=== PATIENT | female | born 1935 | race Caucasian/White ===

== ENCOUNTER → 2021-04-06 | Outpatient (CLI) | payer OTHER ==
[~2021-04-06] MED LIST: ALBU.083IS IH; ALBU90OI INH; CALCAVITD PO; CALCIUM; CONEST.3 PO; FLUSAL2505 IH; LATANOPROST; LEVFLO500 PO; MULTIVITS; OMEP20ER PO; Prednisone20 MG PO; TIMOLOL; TRAV.004OP OD; TRAZ50 PO
[2021-04-06 11:26] LABS: BASOPHILS ABSOLUTE AUTO 0.07 K/mm3 (0.00-0.23); BASOPHILS PERCENT AUTO 1 % (0-2); EOSINOPHILS ABSOLUTE AUTO 0.84 K/mm3 (0.00-0.68); EOSINOPHILS PERCENT AUTO 14 % (0-6); Hematocrit 39.8 % (33.0-51.0); Hemoglobin 13.5 g/dL (11.5-16.0); IMMATURE GRAN ABSOLUTE AUTO 0.01 K/mm3 (0.00-0.10); IMMATURE GRAN PERCENT AUTO 0 % (0-1); LYMPHOCYTES ABSOLUTE AUTO 2.23 K/mm3 (0.84-5.20); LYMPHOCYTES PERCENT AUTO 37 % (21-46); MONOCYTES ABSOLUTE AUTO 0.38 K/mm3 (0.16-1.47); MONOCYTES PERCENT AUTO 6 % (4-13); Mean Corpuscular HGB 31.5 pg (26.0-34.0); Mean Corpuscular HGB Conc 33.9 g/dL (31.5-36.5); Mean Corpuscular Volume 93 fL (80-100); Mean Platelet Volume 9.5 fL (9.1-12.4); NEUTROPHILS ABSOLUTE AUTO 2.58 K/mm3 (1.96-9.15); NEUTROPHILS PERCENT AUTO 42 % (41-73); Platelet Count 276 K/mm3 (150-400); RDW Coefficient Variation 13.5 % (11.7-14.2); RDW Standard Deviation 46.2 fL (35.1-46.3); Red Blood Cell Count 4.28 M/mm3 (3.80-5.20); White Blood Cell Count 6.11 K/mm3 (4.00-11.30)
[2021-04-06 11:37] LABS: Alanine Aminotransfer (ALT/SGP 19 U/L (12-78); Albumin, Blood 4.2 g/dL (3.4-5.0); Albumin/Globulin Ratio 1.4 (0.8-1.8); Alk Phos 57 U/L (40-126); Anion Gap 9 mmol/L (6-16); Aspartate Aminotrans (AST/SGOT 22 U/L (12-37); Bilirubin, Total 1.1 mg/dL (0.1-1.0); Blood Urea Nitrogen 15 mg/dL (8-24); Bun/Creatinine Ratio 19.5 (12.0-20.0); CHOL/HDL RATIO 2.9; CO2, Blood 26 mmol/L (21-32); Calcium, Blood 9.7 mg/dL (8.5-10.1); Chloride, Blood 105 mmol/L (98-108); Cholesterol 193 mg/dL (50-200); Creatinine, Blood 0.77 mg/dL (0.40-1.00); Globulin, Blood 3.1 g/dL (2.2-4.0); Glomerular Filtration Rate >60 (60-); Glucose, Blood 102 mg/dL (70-99); HDL Cholesterol 67 mg/dL (>39); LDL/HDL RATIO 1.6; Low Density Lipoprotein Chol 106 mg/dL (<110); Sodium, Blood 140 mmol/L (136-145); Total Protein, Blood 7.3 g/dL (6.4-8.2); Triglycerides 99 mg/dL (30-160); Very Low Density Lipoprot Chol 19 mg/dL (6-32)
== END | disposition home or self-care (01) ==
LOC: LAB 10:54 → LAB SHORT 10:54
PROVIDERS: Family Medicine
DX: E78.5 Hyperlipidemia, unspecified (principal)
CPT/HCPCS: 80053; 80061; 85025

== ENCOUNTER → 2022-01-20 | Outpatient (CLI) | payer OTHER ==
[2022-01-20 12:15] LABS: BASOPHILS ABSOLUTE AUTO 0.08 K/mm3 (0.00-0.23); BASOPHILS PERCENT AUTO 1 % (0-2); EOSINOPHILS ABSOLUTE AUTO 0.19 K/mm3 (0.00-0.68); EOSINOPHILS PERCENT AUTO 2 % (0-6); Hematocrit 38.2 % (33.0-51.0); Hemoglobin 12.8 g/dL (11.5-16.0); IMMATURE GRAN ABSOLUTE AUTO 0.02 K/mm3 (0.00-0.10); IMMATURE GRAN PERCENT AUTO 0 % (0-1); LYMPHOCYTES ABSOLUTE AUTO 3.44 K/mm3 (0.84-5.20); LYMPHOCYTES PERCENT AUTO 43 % (21-46); MONOCYTES ABSOLUTE AUTO 0.61 K/mm3 (0.16-1.47); MONOCYTES PERCENT AUTO 8 % (4-13); Mean Corpuscular HGB Conc 33.5 g/dL (31.5-36.5); Mean Corpuscular Volume 96 fL (80-100); Mean Platelet Volume 8.9 fL (9.1-12.4); NEUTROPHILS PERCENT AUTO 45 % (41-73); Platelet Count 264 K/mm3 (150-400); RDW Coefficient Variation 13.5 % (11.7-14.2); RDW Standard Deviation 47.8 fL (35.1-46.3); White Blood Cell Count 7.94 K/mm3 (4.00-11.30)
[2022-01-20 12:25] LABS: Albumin, Blood 3.5 g/dL (3.4-5.0); Albumin/Globulin Ratio 1.2 (0.8-1.8); Bilirubin, Total 0.5 mg/dL (0.1-1.0); Bun/Creatinine Ratio 12.9 (12.0-20.0); Calcium, Blood 8.5 mg/dL (8.5-10.1); Creatinine, Blood 0.7 mg/dL (0.40-1.00); Globulin, Blood 2.9 g/dL (2.2-4.0); Potassium, Blood 3.4 mmol/L (3.5-5.5); Total Protein, Blood 6.4 g/dL (6.4-8.2)
== END | disposition home or self-care (01) ==
LOC: LAB 12:10 → LAB SHORT 12:10
PROVIDERS: General Practice
DX: T63.444A Toxic effect of venom of bees, undetermined, initial encounter (principal)
CPT/HCPCS: 80053; 85025

== ENCOUNTER → 2022-07-18 | Outpatient (CLI) | payer OTHER ==
[2022-07-18 16:30] LABS: BASOPHILS ABSOLUTE AUTO 0.06 K/mm3 (0.00-0.23); BASOPHILS PERCENT AUTO 1 % (0-2); EOSINOPHILS ABSOLUTE AUTO 0.07 K/mm3 (0.00-0.68); EOSINOPHILS PERCENT AUTO 1 % (0-6); Hematocrit 40.8 % (33.0-51.0); Hemoglobin 13.6 g/dL (11.5-16.0); IMMATURE GRAN ABSOLUTE AUTO 0.03 K/mm3 (0.00-0.10); IMMATURE GRAN PERCENT AUTO 0 % (0-1); LYMPHOCYTES ABSOLUTE AUTO 4.18 K/mm3 (0.84-5.20); LYMPHOCYTES PERCENT AUTO 39 % (21-46); MONOCYTES ABSOLUTE AUTO 0.79 K/mm3 (0.16-1.47); MONOCYTES PERCENT AUTO 7 % (4-13); Mean Corpuscular HGB 32.1 pg (26.0-34.0); Mean Corpuscular HGB Conc 33.3 g/dL (31.5-36.5); Mean Corpuscular Volume 96 fL (80-100); Mean Platelet Volume 9.4 fL (9.1-12.4); NEUTROPHILS ABSOLUTE AUTO 5.71 K/mm3 (1.96-9.15); NEUTROPHILS PERCENT AUTO 53 % (41-73); Platelet Count 251 K/mm3 (150-400); RDW Coefficient Variation 13.2 % (11.7-14.2); RDW Standard Deviation 46.6 fL (35.1-46.3); Red Blood Cell Count 4.24 M/mm3 (3.80-5.20); White Blood Cell Count 10.84 K/mm3 (4.00-11.30)
[2022-07-18 16:47] LABS: Albumin, Blood 3.9 g/dL (3.4-5.0); Albumin/Globulin Ratio 1.3 (0.8-1.8); Bun/Creatinine Ratio 28.4 (12.0-20.0); Calcium, Blood 9.5 mg/dL (8.5-10.1); Creatinine, Blood 0.67 mg/dL (0.40-1.00); Potassium, Blood 3.4 mmol/L (3.5-5.5); Total Protein, Blood 6.9 g/dL (6.4-8.2)
[2022-07-18 16:58] LABS: Cholesterol 173 mg/dL (50-200); HDL Cholesterol 86 mg/dL (>39); LDL/HDL RATIO 0.8; Low Density Lipoprotein Chol 68 mg/dL (<110); Triglycerides 94 mg/dL (30-160); Very Low Density Lipoprot Chol 18 mg/dL (6-32)
== END | disposition home or self-care (01) ==
LOC: LAB 16:18 → LAB SHORT 16:18
PROVIDERS: Physician Assistant
DX: R07.9 Chest pain, unspecified (principal); R73.01 Impaired fasting glucose
CPT/HCPCS: 80053; 80061; 83036; 85025

== ENCOUNTER → 2022-10-15 | Outpatient (CLI) | payer OTHER | END | disposition home or self-care (01) | LOC: LAB SHORT 15:45 → LAB 15:45 | DX: R30.0 Dysuria (principal) | CPT/HCPCS: 87077; 87086; 87186 ==

== ENCOUNTER → 2022-11-18 | Outpatient (CLI) | payer OTHER ==
[2022-11-18 13:04] LABS: BASOPHILS ABSOLUTE AUTO 0.03 K/mm3 (0.00-0.23); BASOPHILS PERCENT AUTO 0 % (0-2); EOSINOPHILS PERCENT AUTO 2 % (0-6); Hematocrit 37.6 % (33.0-51.0); Hemoglobin 12.7 g/dL (11.5-16.0); IMMATURE GRAN ABSOLUTE AUTO 0.03 K/mm3 (0.00-0.10); IMMATURE GRAN PERCENT AUTO 0 % (0-1); LYMPHOCYTES ABSOLUTE AUTO 4.16 K/mm3 (0.84-5.20); LYMPHOCYTES PERCENT AUTO 38 % (21-46); MONOCYTES ABSOLUTE AUTO 0.86 K/mm3 (0.16-1.47); MONOCYTES PERCENT AUTO 8 % (4-13); Mean Corpuscular HGB 32.5 pg (26.0-34.0); Mean Corpuscular HGB Conc 33.8 g/dL (31.5-36.5); Mean Corpuscular Volume 96 fL (80-100); Mean Platelet Volume 8.4 fL (9.1-12.4); NEUTROPHILS ABSOLUTE AUTO 5.61 K/mm3 (1.96-9.15); NEUTROPHILS PERCENT AUTO 52 % (41-73); Platelet Count 304 K/mm3 (150-400); RDW Coefficient Variation 13.9 % (11.7-14.2); RDW Standard Deviation 48.8 fL (35.1-46.3); Red Blood Cell Count 3.91 M/mm3 (3.80-5.20); White Blood Cell Count 10.89 K/mm3 (4.00-11.30)
[2022-11-18 13:14] LABS: Albumin, Blood 3.5 g/dL (3.4-5.0); Albumin/Globulin Ratio 1.2 (0.8-1.8); Bilirubin, Total 0.7 mg/dL (0.1-1.0); Calcium, Blood 9.3 mg/dL (8.5-10.1); Creatinine, Blood 0.77 mg/dL (0.40-1.00); Magnesium, Blood 1.9 mg/dL (1.6-2.4); Potassium, Blood 3.7 mmol/L (3.5-5.5); Total Protein, Blood 6.5 g/dL (6.4-8.2)
== END | disposition home or self-care (01) ==
LOC: LAB 12:58 → LAB SHORT 12:58
PROVIDERS: Emergency Medicine
DX: R06.00 Dyspnea, unspecified (principal)
CPT/HCPCS: 80053; 83735; 85025

== ENCOUNTER 2023-12-11 06:05 | Emergency (ER) | payer OTHER ==
[~2023-12-11] VITALS: Ht 162.6 cm; Wt 44.0 kg
[2023-12-11] MEDS ORDERED: Ipratropium/Albuterol SulF 2.5-0.5MG/3 ML Amp INH ONE (06:55)
[2023-12-11 06:59] LABS: BASOPHILS ABSOLUTE AUTO 0.06 K/mm3 (0.00-0.23); BASOPHILS PERCENT AUTO 1 % (0-2); EOSINOPHILS PERCENT AUTO 32 % (0-6); Hematocrit 38.4 % (33.0-51.0); Hemoglobin 12.8 g/dL (11.5-16.0); IMMATURE GRAN ABSOLUTE AUTO 0.01 K/mm3 (0.00-0.10); IMMATURE GRAN PERCENT AUTO 0 % (0-1); LYMPHOCYTES ABSOLUTE AUTO 1.84 K/mm3 (0.84-5.20); LYMPHOCYTES PERCENT AUTO 24 % (21-46); MONOCYTES ABSOLUTE AUTO 0.49 K/mm3 (0.16-1.47); MONOCYTES PERCENT AUTO 6 % (4-13); Mean Corpuscular HGB 32.2 pg (26.0-34.0); Mean Corpuscular HGB Conc 33.3 g/dL (31.5-36.5); Mean Corpuscular Volume 97 fL (80-100); Mean Platelet Volume 9.3 fL (9.1-12.4); NEUTROPHILS ABSOLUTE AUTO 2.92 K/mm3 (1.96-9.15); NEUTROPHILS PERCENT AUTO 37 % (41-73); Platelet Count 236 K/mm3 (150-400); RDW Coefficient Variation 13.3 % (11.7-14.2); RDW Standard Deviation 47.8 fL (35.1-46.3); Red Blood Cell Count 3.97 M/mm3 (3.80-5.20); White Blood Cell Count 7.82 K/mm3 (4.00-11.30)
[2023-12-11 07:17] LABS: Albumin, Blood 3.9 g/dL (3.4-5.0); Albumin/Globulin Ratio 1.3 (0.8-1.8); Bilirubin, Total 0.9 mg/dL (0.1-1.0); Bun/Creatinine Ratio 18.9 (12.0-20.0); Calcium, Blood 8.9 mg/dL (8.5-10.1); Creatinine, Blood 0.58 mg/dL (0.40-1.00); Potassium, Blood 4.2 mmol/L (3.5-5.5); Total Protein, Blood 6.9 g/dL (6.4-8.2)
[2023-12-11 07:22] LABS: BASOPHILS ABSOLUTE MAN 0.07 K/mm3 (0.00-0.23); BASOPHILS PERCENT MAN 1 % (0-2); EOSINOPHILS ABSOLUTE MAN 1.72 K/mm3 (0.00-0.68); EOSINOPHILS PERCENT MAN 22 % (0-6); LYMPHOCYTES ABSOLUTE MAN 2.34 K/mm3 (0.84-5.20); LYMPHOCYTES PERCENT MAN 30 % (21-46); MONOCYTES ABSOLUTE MAN 0.31 K/mm3 (0.16-1.47); MONOCYTES PERCENT MAN 4 % (4-13); NEUTROPHILS ABSOLUTE MAN 3.36 K/mm3 (1.96-9.15); SEG NEUTROPHILS PERCENT MAN 43 % (41-73); TOTAL CELLS COUNTED 100
[2023-12-11 08:59] LABS: Base Excess Venous 2.9 mmol/L; Bicarbonate Venous 25.9 mmol/L (24.0-30.0); PCO2 Venous 49.2 mmHg (38-42); pH Blood Venous 7.37 (7.34-7.37)
[2023-12-11] MEDS ORDERED: PRED20 PO (09:45)
[2023-12-11 10:01] LABS: Influenza A, PCR NEGATIVE (NEGATIVE); Influenza B, PCR NEGATIVE (NEGATIVE); Resp Syncytial Virus, PCR NEGATIVE (NEGATIVE); SARS-Cov-2 (COVID-19) PCR, MMC NEGATIVE (NEGATIVE)
[2023-12-11] MEDS ORDERED: AZIT250 PO (10:08)
[2023-12-11 10:49] VITALS: BP 137/84
[2023-12-11] MEDS ORDERED: ALBU90OI INH (11:09)
== END 2023-12-11 11:02 | disposition home or self-care (01) ==
LOC: ER 06:05
PROVIDERS: Emergency Medicine
DX: J44.1 Chronic obstructive pulmonary disease with (acute) exacerbation (principal); J18.9 Pneumonia, unspecified organism; Z87.891 Personal history of nicotine dependence; Z79.899 Other long term (current) drug therapy; Z88.5 Allergy status to narcotic agent; Z91.041 Radiographic dye allergy status; Z88.6 Allergy status to analgesic agent
CPT/HCPCS: 0241U; 71045; 80053; 82803; 85025; 93005; 93010; 94640; 94664; 99285-25

== ENCOUNTER 2024-08-03 10:40 | Inpatient (IN) | payer OTHER ==
[~2024-08-03] VITALS: Ht 162.6 cm; Wt 41.1 kg
[~2024-08-03 10:40] MED LIST changes: +AZIT250 PO; +PRED20 PO
[2024-08-03 11:27] LABS: BASOPHILS ABSOLUTE AUTO 0.04 K/mm3 (0.00-0.23); BASOPHILS PERCENT AUTO 1 % (0-2); EOSINOPHILS ABSOLUTE AUTO 0.07 K/mm3 (0.00-0.68); EOSINOPHILS PERCENT AUTO 1 % (0-6); Hematocrit 38.4 % (33.0-51.0); Hemoglobin 13.2 g/dL (11.5-16.0); IMMATURE GRAN ABSOLUTE AUTO 0.02 K/mm3 (0.00-0.10); IMMATURE GRAN PERCENT AUTO 0 % (0-1); LYMPHOCYTES ABSOLUTE AUTO 0.37 K/mm3 (0.84-5.20); LYMPHOCYTES PERCENT AUTO 6 % (21-46); MONOCYTES ABSOLUTE AUTO 0.37 K/mm3 (0.16-1.47); MONOCYTES PERCENT AUTO 6 % (4-13); Mean Corpuscular HGB 33.3 pg (26.0-34.0); Mean Corpuscular HGB Conc 34.4 g/dL (31.5-36.5); Mean Corpuscular Volume 97 fL (80-100); Mean Platelet Volume 8.8 fL (9.1-12.4); NEUTROPHILS PERCENT AUTO 86 % (41-73); Platelet Count 161 K/mm3 (150-400); RDW Coefficient Variation 13.2 % (11.7-14.2); RDW Standard Deviation 47.4 fL (35.1-46.3); Red Blood Cell Count 3.96 M/mm3 (3.80-5.20); White Blood Cell Count 6.07 K/mm3 (4.00-11.30)
[2024-08-03 12:04] LABS: Influenza A, PCR POSITIVE (NEGATIVE); Influenza B, PCR NEGATIVE (NEGATIVE); Resp Syncytial Virus, PCR NEGATIVE (NEGATIVE); SARS-Cov-2 (COVID-19) PCR, MMC NEGATIVE (NEGATIVE)
[2024-08-03 12:18] LABS: Albumin/Globulin Ratio 1.4 (0.8-1.8); Creatinine, Blood 0.62 mg/dL (0.40-1.00); Globulin, Blood 2.8 g/dL (2.2-4.0); Potassium, Blood 4.3 mmol/L (3.5-5.5); Total Protein, Blood 6.8 g/dL (6.4-8.2)
[2024-08-03] MEDS ORDERED: Ipratropium Bromide INH 0.02% 0.5 mg/2.5ML Vial INH SCH (14:40)
[2024-08-03] MEDS ORDERED: Albuterol 2.5 MG/3 ML VIAL INH SCH (14:40)
[2024-08-03] MEDS ORDERED: MethylPREDNISolone Sod Succ 125 MG Vial IV ONE (15:55)
[2024-08-03] MEDS ORDERED: Proventil HFA 90 mcg INH (17:08)
[2024-08-03] MEDS ORDERED: ALPHAGAN P BOTHEYES (17:09)
[2024-08-03] MEDS ORDERED: BRINZOLAMIDE BOTHEYES (17:10)
[2024-08-03] MEDS ORDERED: CALCIUM 600 MG1 EA17 PO (17:11)
[2024-08-03] MEDS ORDERED: PANT40 PO (17:12)
[2024-08-03] MEDS ORDERED: TRAZ50 PO (17:13)
[2024-08-03] MEDS ORDERED: Bisacodyl 10 MG Supp PR PRN (17:15)
[2024-08-03] MEDS ORDERED: TraZODone HCl 50 MG Tab PO PRN (17:15)
[2024-08-03] MEDS ORDERED: Magnesium Hydroxide Conc 10 ML UDC PO PRN (17:20)
[2024-08-03] MEDS ORDERED: FLU VACC TS2024-25(6MOS UP)/PF 45 MCG/0.5 ML SYRINGE IM SCH (17:20)
[2024-08-03] MEDS ORDERED: Ondansetron 4 MG TAB PO PRN (17:20)
[2024-08-03] MEDS ORDERED: Oseltamvir Phosphate 30 MG Cap PO SCH (18:00)
[2024-08-03] MEDS ORDERED: Ipratropium/Albuterol SulF 2.5-0.5MG/3 ML Amp INH SCH (18:10)
[2024-08-03] MEDS ORDERED: Albuterol 2.5 MG/3 ML VIAL INH PRN (18:10)
[2024-08-03 19:29] VITALS: BP 90/72
[2024-08-03] MEDS ORDERED: Misc. Opth LEFTEYE SCH ×2 (21:00)
[2024-08-04 03:26] VITALS: BP 185/94
--- NOTE | 2024-08-04 04:30 | NUR ---
SHIFT SUMMARY 89 YR F ADMITTED ON 08/03/24. DNR. PT IS CURRENTLY ON 6 L O2 BY [place] BUT WAS ONLY ON 2 L WHEN ADMITTED TO MEDICAL FLOOR. SHE BECOMES SOB AND DESATS WHEN AMBULATING TO THE BATHROOM. SHE HAS ALSO DESATED TO MID-LOW 80'S SEVERAL TIMES THROUGHOUT THE NIGHT WHILE JUST LAYING IN BED. HER BREATHING IS LABORED. RT HAS BEEN IN FOR SEVERAL BREATHING TXS THROUGHOUT THE NIGHT. PT IS A&O X 4 AND STATES SHE USES 2 L O2 AT NIGHT WHILE AT HOME. NO C/O CHEST PAIN OR DISCOMFORT OTHER THAN SOB. CONT PULSE OX IN PLACE. WILL CONTINUE TO MONITOR CLOSELY. BED IN LOW POSITION AND CALL LIGHT IN REACH.
[2024-08-04] MEDS ORDERED: Pantoprazole Sodium 40 MG Tab PO SCH (06:00)
[2024-08-04 06:01] LABS: BASOPHILS ABSOLUTE AUTO 0.01 K/mm3 (0.00-0.23); BASOPHILS PERCENT AUTO 0 % (0-2); EOSINOPHILS PERCENT AUTO 0 % (0-6); Hematocrit 39.3 % (33.0-51.0); Hemoglobin 13.3 g/dL (11.5-16.0); IMMATURE GRAN ABSOLUTE AUTO 0.04 K/mm3 (0.00-0.10); IMMATURE GRAN PERCENT AUTO 1 % (0-1); LYMPHOCYTES ABSOLUTE AUTO 0.32 K/mm3 (0.84-5.20); LYMPHOCYTES PERCENT AUTO 5 % (21-46); MONOCYTES ABSOLUTE AUTO 0.44 K/mm3 (0.16-1.47); MONOCYTES PERCENT AUTO 6 % (4-13); Mean Corpuscular HGB Conc 33.8 g/dL (31.5-36.5); Mean Corpuscular Volume 98 fL (80-100); Mean Platelet Volume 9.6 fL (9.1-12.4); NEUTROPHILS ABSOLUTE AUTO 6.36 K/mm3 (1.96-9.15); NEUTROPHILS PERCENT AUTO 89 % (41-73); Platelet Count 164 K/mm3 (150-400); RDW Coefficient Variation 13.2 % (11.7-14.2); RDW Standard Deviation 47.4 fL (35.1-46.3); Red Blood Cell Count 4.03 M/mm3 (3.80-5.20); White Blood Cell Count 7.17 K/mm3 (4.00-11.30)
[2024-08-04 06:22] LABS: Bun/Creatinine Ratio 33.8 (12.0-20.0); Calcium, Blood 8.9 mg/dL (8.5-10.1); Creatinine, Blood 0.41 mg/dL (0.40-1.00)
[2024-08-04 07:30] VITALS: BP 173/86
[2024-08-04] MEDS ORDERED: Acetaminophen 325 MG TABLET PO PRN (08:10)
[2024-08-04] MEDS ORDERED: MethylPREDNISolone Sod Succ 40 MG VIAL IV SCH (09:00)
[2024-08-04] MEDS ORDERED: Enoxaparin 30 MG/0.3 ML SYR SC SCH (09:00)
[2024-08-04] MEDS ORDERED: Nicotine 14 MG PATCH TOP SCH (09:00)
[2024-08-04] MEDS ORDERED: Calcium/Vit D 600 mg-400 Unit Tab PO SCH (09:00)
[2024-08-04] MEDS ORDERED: Ibuprofen 600 MG Tab PO PRN (11:35)
[2024-08-04 15:32] VITALS: BP 129/70
--- NOTE | 2024-08-04 18:09 | NUR ---
SHIFT SUMMARY PT A&OX4. PT ADMITTED DUE TO PT ON DROPLET FOR FLU A. PT DNI. WHEN THIS RN GOT ON SHIFT, PT REPORTED BEING OUT OF BREATH. HAD TACHYPNIC RESPIRATIONS. CALLED FOR RESPIRATORY TREATMENT. RESPIRATORY CARE RECOMMENDED OXYGEN THROUGH ARVO. CALLED , TO NOTIFY ABOUT PT CONDITION. REPORTED TO DR. MZT THAT PT REPORTED HEADACHE AND REQUESTED PAIN MEDICATION. PT RECEIVED RESPIRATORY TREATMENTS THROUGH DAY. PT ON CONT. PUSLE OX. SPO2 IS MAINTAINING ABOUT 90%. PT OF 1514 ARVO SET TO 50L WITH 30%. VSS. PT IS A SBA TO BSC. PT WAS UP IN CHAIR FOR PART OF SHIFT. HOB ELEVATED THROUGH SHIFT. PT IN BED. BED AT LOWEST POSITION, CALL LIGHT IN REACH. PT CALLS APPROPRIATE.
[2024-08-04 19:37] VITALS: BP 131/71
[2024-08-04] MEDS ORDERED: Protein Supplement 30 ML UD PO SCH (21:00)
[2024-08-05 03:13] VITALS: BP 143/82
--- NOTE | 2024-08-05 04:55 | NUR ---
SHIFT SUMMARY 89 YR F ADMITTED ON 08/04/24. PREVIOUS SHIFT SUMMARY STATES THAT PT IS DNI. THIS IS NOT ACCURATE. PT WAS ADAMENT THAT SHE DOES NOT WANT CHEST COMPRESSIONS BUT SHE WANTS ALL OTHER LIFE SAVING MEASURES, INCLUDING INTUBATION. SHE STATES THAT SHE IS FEELING MUCH BETTER TODAY AND SHE SLEPT THROUGH THE NIGHT. O2 SATS HAVE REMAINED WNL. WILL CONTINUE TO MONITOR. BED IN LOW POSITION AND CALL LIGHT IN REACH.
[2024-08-05 07:20] VITALS: BP 158/83
[2024-08-05 08:48] LABS: BASOPHILS ABSOLUTE AUTO 0.02 K/mm3 (0.00-0.23); BASOPHILS PERCENT AUTO 0 % (0-2); EOSINOPHILS ABSOLUTE AUTO 0.05 K/mm3 (0.00-0.68); EOSINOPHILS PERCENT AUTO 1 % (0-6); Hematocrit 39.3 % (33.0-51.0); Hemoglobin 13.5 g/dL (11.5-16.0); IMMATURE GRAN ABSOLUTE AUTO 0.03 K/mm3 (0.00-0.10); IMMATURE GRAN PERCENT AUTO 0 % (0-1); LYMPHOCYTES ABSOLUTE AUTO 0.65 K/mm3 (0.84-5.20); LYMPHOCYTES PERCENT AUTO 8 % (21-46); MONOCYTES ABSOLUTE AUTO 0.46 K/mm3 (0.16-1.47); MONOCYTES PERCENT AUTO 6 % (4-13); Mean Corpuscular HGB 33.4 pg (26.0-34.0); Mean Corpuscular HGB Conc 34.4 g/dL (31.5-36.5); Mean Corpuscular Volume 97 fL (80-100); Mean Platelet Volume 9.4 fL (9.1-12.4); NEUTROPHILS ABSOLUTE AUTO 7.15 K/mm3 (1.96-9.15); NEUTROPHILS PERCENT AUTO 86 % (41-73); Platelet Count 162 K/mm3 (150-400); RDW Coefficient Variation 13.2 % (11.7-14.2); RDW Standard Deviation 46.9 fL (35.1-46.3); Red Blood Cell Count 4.04 M/mm3 (3.80-5.20); White Blood Cell Count 8.36 K/mm3 (4.00-11.30)
[2024-08-05] MEDS ORDERED: Multivitamins 1 Tab PO SCH (09:00)
[2024-08-05 09:10] LABS: Bun/Creatinine Ratio 47.7 (12.0-20.0); Creatinine, Blood 0.48 mg/dL (0.40-1.00); Magnesium, Blood 2.1 mg/dL (1.6-2.4); Potassium, Blood 3.7 mmol/L (3.5-5.5)
[2024-08-05] MEDS ORDERED: BRIMONIDINE TART5 M3 BOTHEYES (12:32)
[2024-08-05 15:42] VITALS: BP 137/77
--- NOTE | 2024-08-05 17:38 | NUR ---
SHIFT SUMMARY PT NOW ON 2 L/MIN VIA NC AND SATING 97%, NO LONGER USING AIRVO. PT DOES BECOME SOB WITH MINIMAL EXERTION AND DESATS INTO THE 80'S (STAND PIVOT TO BSC AND BACK TO BED) - SUPPLEMENTAL O2 INCREASED TO 4 L/MIN AT THESE TIMES. PT REPORTS FEELING MUCH BETTER. RECIEVING BREATHING TX Q4H BY RT, ALBUTEROL INHALER AVAILABLE PRN. PT APPETITE FAIR. USES CALL LIGHT LIGHT APPRORPRIATEY AND ABLE TO MAKE NEEDS KNOWN. PT DENIES PAIN. CONFIRMED WITH PT THAT SHE IS NOT DNR, WISHES TO BE LIMITED CODE, DOES NOT WANT CPR BUT DOES WANT INTUBATION AT THIS TIME. KAREN NOTIFIED AND PALLIATIVE CARE CONSULT ENTERED. PT CURRENTLY RESTING IN HOSPITAL BED WITH BED IN LOWEST POSITION AND CALL LIGHT WITHIN REACH, VISITING WITH FAMILY MEMBER AT BEDSIDE.
[2024-08-05 19:31] VITALS: BP 150/78
--- NOTE | 2024-08-06 03:39 | NUR ---
SHIFT SUMMARY NO ACUTE EVENTS DURING THIS SHIFT. CONTINUOUS PULSE OXIMETER SAT'S>99% ON 2L VIA NASAL CANNULA. PT DENIES PAIN/DISCOMFORT/SOB. OCCASIONAL DRY/NON-PRODUCTIVE COUGH NOTED @[facility]. HS PRN TRAZADONE ADMINISTERED ORDERED, AND PRN MOTRIN PO FOR GENERALIZED ACHES/PAIN. PT HAS SCHEDULED EYE DROPS @[facility], NOT AVAILABLE FROM THE PHARMACY AT THIS TIME. PT IS A/O X4, PLEASANT AND COOPERATIVE WITH CARE, ABLE TO MAKE HER NEEDS KNOWN. BED AT THE LOWEST POSITION, CALL LIGHT W/I REACH.
[2024-08-06 04:01] VITALS: BP 175/84
[2024-08-06 07:12] VITALS: BP 106/71
[2024-08-06 08:48] LABS: BASOPHILS ABSOLUTE AUTO 0.03 K/mm3 (0.00-0.23); BASOPHILS PERCENT AUTO 1 % (0-2); EOSINOPHILS ABSOLUTE AUTO 0.04 K/mm3 (0.00-0.68); EOSINOPHILS PERCENT AUTO 1 % (0-6); Hematocrit 42.4 % (33.0-51.0); Hemoglobin 14.6 g/dL (11.5-16.0); IMMATURE GRAN ABSOLUTE AUTO 0.06 K/mm3 (0.00-0.10); IMMATURE GRAN PERCENT AUTO 1 % (0-1); LYMPHOCYTES ABSOLUTE AUTO 0.82 K/mm3 (0.84-5.20); LYMPHOCYTES PERCENT AUTO 14 % (21-46); MONOCYTES ABSOLUTE AUTO 0.61 K/mm3 (0.16-1.47); MONOCYTES PERCENT AUTO 11 % (4-13); Mean Corpuscular HGB 33.1 pg (26.0-34.0); Mean Corpuscular HGB Conc 34.4 g/dL (31.5-36.5); Mean Corpuscular Volume 96 fL (80-100); NEUTROPHILS ABSOLUTE AUTO 4.18 K/mm3 (1.96-9.15); NEUTROPHILS PERCENT AUTO 73 % (41-73); RDW Coefficient Variation 13.1 % (11.7-14.2); RDW Standard Deviation 46.9 fL (35.1-46.3); Red Blood Cell Count 4.41 M/mm3 (3.80-5.20); White Blood Cell Count 5.74 K/mm3 (4.00-11.30)
[2024-08-06 09:02] LABS: Bun/Creatinine Ratio 63.8 (12.0-20.0); Calcium, Blood 9.3 mg/dL (8.5-10.1); Creatinine, Blood 0.49 mg/dL (0.40-1.00); Potassium, Blood 3.9 mmol/L (3.5-5.5)
[2024-08-06 10:09] LABS: Mean Platelet Volume 9.6 fL (9.1-12.4); Platelet Count 139 K/mm3 (150-400)
[2024-08-06 16:04] VITALS: BP 104/62
--- NOTE | 2024-08-06 18:23 | NUR ---
SHIFT SUMMARY: PT A&O X4. PLEASANT AND COOPERATVE WITH CARE. NO ACUTE CHANGES THIS SHIFT. PT REMAINS ON 2L NC MAINTAINING SATS >88%. ON CONT BIOX. INDEPENDENT IN ROOM. PLAN FOR HOME 02 EVAL IN AM THEN DISCHARGE TOMORROW. CALL LIGHT IN REACH. BED IN LOWEST POSITION.
[2024-08-06 19:36] VITALS: BP 153/62
[2024-08-07 04:19] VITALS: BP 127/79
[2024-08-07 07:52] VITALS: BP 113/71
[2024-08-07 08:18] LABS: BASOPHILS ABSOLUTE AUTO 0.02 K/mm3 (0.00-0.23); BASOPHILS PERCENT AUTO 0 % (0-2); EOSINOPHILS ABSOLUTE AUTO 0.04 K/mm3 (0.00-0.68); EOSINOPHILS PERCENT AUTO 1 % (0-6); Hemoglobin 14.2 g/dL (11.5-16.0); IMMATURE GRAN ABSOLUTE AUTO 0.01 K/mm3 (0.00-0.10); IMMATURE GRAN PERCENT AUTO 0 % (0-1); LYMPHOCYTES ABSOLUTE AUTO 1.16 K/mm3 (0.84-5.20); LYMPHOCYTES PERCENT AUTO 20 % (21-46); MONOCYTES ABSOLUTE AUTO 0.75 K/mm3 (0.16-1.47); MONOCYTES PERCENT AUTO 13 % (4-13); Mean Corpuscular HGB 32.6 pg (26.0-34.0); Mean Corpuscular Volume 99 fL (80-100); Mean Platelet Volume 9.6 fL (9.1-12.4); NEUTROPHILS ABSOLUTE AUTO 3.85 K/mm3 (1.96-9.15); NEUTROPHILS PERCENT AUTO 66 % (41-73); Platelet Count 146 K/mm3 (150-400); RDW Coefficient Variation 13.1 % (11.7-14.2); RDW Standard Deviation 47.6 fL (35.1-46.3); Red Blood Cell Count 4.36 M/mm3 (3.80-5.20); White Blood Cell Count 5.83 K/mm3 (4.00-11.30)
[2024-08-07 08:38] LABS: Bun/Creatinine Ratio 68.9 (12.0-20.0); Calcium, Blood 9.8 mg/dL (8.5-10.1); Creatinine, Blood 0.48 mg/dL (0.40-1.00); Potassium, Blood 4.6 mmol/L (3.5-5.5)
[2024-08-07] MEDS ORDERED: Nicoderm Cq1 EAC1 TOP (13:29)
--- NOTE | 2024-08-07 15:05 | NUR ---
MET WITH PT TO DISCUSS GOALS OF CARE. 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 WE TALKED ABOUT HER CONCERNS AND FEARS, AND SHE STATES HER BIGGEST FEAR IS DYING "BY SUFFOCATION." WE THEN DISCUSSED HOSPICE AN OPTION, BUT SHE STATES SHE ISN'T SURE SHE IS READY TO "HAVE THAT CONVERSATION RIGHT NOW." LEFT A HOSPICE BOOKLET WITH HER.
--- NOTE | 2024-08-07 15:50 | NUR ---
DISCHARGE PT AOX4, COOPERATIVE, ABLE TO MAKE NEEDS KNOWN. BOTH IV'S DC'D BY THIS RN WITHOUT EVENTS. FAMILY CAME TO TRANSPORT PT BACK HOME. THIS RN READ THROUGH DC PAPERWORK WITH PT AND FAMILY MEMBER. [employer] FINISH SPRAYER TRANSPORTED PT TO ENTRANCE BY WHEELCHAIR. PT DESTIN AND DC PAPERWORK WENT WITH PT.
== END 2024-08-07 15:50 | disposition home or self-care (01) | DRG 193 ==
LOC: ER 10:40 → MEDS 10:41
PROVIDERS: Student in an Organized Health Care Education/Training Program; ADMIT Student in an Organized Health Care Education/Training Program
DX: J10.1 Influenza due to other identified influenza virus with other respiratory manifestations (principal); J96.01 Acute respiratory failure with hypoxia; J44.1 Chronic obstructive pulmonary disease with (acute) exacerbation; Z68.1 Body mass index [BMI] 19.9 or less, adult; F17.210 Nicotine dependence, cigarettes, uncomplicated; K21.9 Gastro-esophageal reflux disease without esophagitis; M17.10 Unilateral primary osteoarthritis, unspecified knee; M85.80 Other specified disorders of bone density and structure, unspecified site; Z66 Do not resuscitate; H40.9 Unspecified glaucoma; G43.909 Migraine, unspecified, not intractable, without status migrainosus; E78.5 Hyperlipidemia, unspecified; G47.00 Insomnia, unspecified; K22.70 Barrett's esophagus without dysplasia; R63.4 Abnormal weight loss; Z79.51 Long term (current) use of inhaled steroids; Z88.5 Allergy status to narcotic agent; Z88.8 Allergy status to other drugs, medicaments and biological substances; Z79.52 Long term (current) use of systemic steroids; Z79.2 Long term (current) use of antibiotics; Z87.19 Personal history of other diseases of the digestive system; Z90.49 Acquired absence of other specified parts of digestive tract; Z90.710 Acquired absence of both cervix and uterus; Z98.1 Arthrodesis status; Z90.89 Acquired absence of other organs; Z98.890 Other specified postprocedural states; Z91.041 Radiographic dye allergy status; Z86.711 Personal history of pulmonary embolism; Z87.39 Personal history of other diseases of the musculoskeletal system and connective tissue; Z99.81 Dependence on supplemental oxygen
CPT/HCPCS: 0241U; 36415; 71046; 80048; 80053; 83735; 85025; 93005; 93010; 94640; 94644; 94664; 94761; 94762; 96372; 96374; 96376; 99285-25; A9270; G0378; J1650; J2919

== ENCOUNTER 2025-04-03 21:21 | Inpatient (IN) | payer OTHER ==
[~2025-04-03] VITALS: Ht 162.6 cm; Wt 48.5 kg
[~2025-04-03 21:21] MED LIST changes: +ALPHAGAN P BOTHEYES; +BRIMONIDINE TART5 M3 BOTHEYES; +BRINZOLAMIDE BOTHEYES; +CALCIUM 600 MG1 EA17 PO; +Nicoderm Cq1 EAC1 TOP; +PANT40 PO; +Proventil HFA 90 mcg INH
[2025-04-03] MEDS ORDERED: Ondansetron HCl 2 MG / ML 2ML Vial IV ONE (21:50)
[2025-04-03 22:00] VITALS: BP 180/83
[2025-04-03 22:06] LABS: Hematocrit 38.7 % (33.0-51.0); Hemoglobin 13.0 g/dL (11.5-16.0); Mean Corpuscular HGB Conc 33.6 g/dL (31.5-36.5); Mean Corpuscular Volume 93 fL (80-100); NRBC ABSOLUTE 0.00 K/mm3 (0.00-0.02); NRBC Auto 0.0 /100 WBC (0.0-0.2); Platelet Count 310 K/mm3 (150-400); RDW Coefficient Variation 13.2 % (11.7-14.2); RDW Standard Deviation 44.9 fL (35.1-46.3)
[2025-04-03 22:15] VITALS: BP 162/77
[2025-04-03 22:24] LABS: Alanine Aminotransfer (ALT/SGP 20.0 U/L (12-78); Albumin, Blood 3.4 g/dL (3.4-5.0); Albumin/Globulin Ratio 0.9 (0.8-1.8); Anion Gap 6.0 mmol/L (3-11); Aspartate Aminotrans (AST/SGOT 16.0 U/L (12-37); Bilirubin, Total 0.7 mg/dL (0.1-1.0); Blood Urea Nitrogen 9.0 mg/dL (8-24); CO2, Blood 30.0 mmol/L (21-32); Calcium, Blood 9.3 mg/dL (8.5-10.1); Chloride, Blood 104.0 mmol/L (98-108); Creatinine, Blood 0.55 mg/dL (0.40-1.00); Globulin, Blood 3.8 g/dL (2.2-4.0); Glucose, Blood 122.0 mg/dL (70-99); Potassium, Blood 4.2 mmol/L (3.5-5.5); Sodium, Blood 136.0 mmol/L (136-145); Total Protein, Blood 7.2 g/dL (6.4-8.2)
[2025-04-03 22:30] VITALS: BP 161/74
[2025-04-03 22:34] LABS: BAND PERCENT MAN 1 % (0-8); BASOPHILS ABSOLUTE MAN 0.00 K/mm3 (0.00-0.23); BASOPHILS PERCENT MAN 0 % (0-2); EOSINOPHILS ABSOLUTE MAN 6.62 K/mm3 (0.00-0.68); EOSINOPHILS PERCENT MAN 43 % (0-6); LYMPHOCYTES ABSOLUTE MAN 0.77 K/mm3 (0.84-5.20); LYMPHOCYTES PERCENT MAN 5 % (21-46); MONOCYTES ABSOLUTE MAN 1.23 K/mm3 (0.16-1.47); MONOCYTES PERCENT MAN 8 % (4-13); NEUTROPHILS ABSOLUTE MAN 6.77 K/mm3 (1.96-9.15); SEG NEUTROPHILS PERCENT MAN 43 % (41-73)
[2025-04-03] MEDS ORDERED: CefTRIAXone Sodium 1,000 MG in NS 100 ML IV ONE (22:35)
[2025-04-03 23:00] VITALS: BP 168/75
[2025-04-03 23:20] VITALS: BP 159/78
[2025-04-04] VITALS: BP 160/104
[2025-04-04] MEDS ORDERED: Ondansetron HCl 2 MG / ML 2ML Vial IV PRN ×2 (00:30→00:55)
[2025-04-04] MEDS ORDERED: Ipratropium/Albuterol SulF 2.5-0.5MG/3 ML Amp INH SCH (00:45)
[2025-04-04] MEDS ORDERED: Albuterol 2.5 MG/3 ML VIAL INH PRN (00:50)
[2025-04-04 01:41] VITALS: BP 173/86
[2025-04-04] MEDS ORDERED: NS 500 ML IV SCH (02:00)
--- NOTE | 2025-04-04 02:34 | NUR ---
THIS RN NOTIFIED DR. ALEMAN OF PT'S ELEVATED BP. PROVIDER TO PUT IN PRN ORDER.
[2025-04-04] MEDS ORDERED: HydrALAZINE HCl 20 MG / ML 1ML Vial IV PRN (02:45)
[2025-04-04 02:53] LABS: BASOPHILS ABSOLUTE AUTO 0.08 K/mm3 (0.00-0.23); BASOPHILS PERCENT AUTO 1 % (0-2); EOSINOPHILS ABSOLUTE AUTO 3.78 K/mm3 (0.00-0.68); EOSINOPHILS PERCENT AUTO 33 % (0-6); Hematocrit 38.8 % (33.0-51.0); Hemoglobin 12.9 g/dL (11.5-16.0); Mean Corpuscular HGB Conc 33.2 g/dL (31.5-36.5); Mean Corpuscular Volume 94 fL (80-100); NRBC ABSOLUTE 0.00 K/mm3 (0.00-0.02); NRBC Auto 0.0 /100 WBC (0.0-0.2); Platelet Count 288 K/mm3 (150-400); RDW Coefficient Variation 13.2 % (11.7-14.2); RDW Standard Deviation 45.5 fL (35.1-46.3)
[2025-04-04 02:54] LABS: IMMATURE GRAN ABSOLUTE AUTO 0.04 K/mm3 (0.00-0.10); IMMATURE GRAN PERCENT AUTO 0 % (0-1); LYMPHOCYTES ABSOLUTE AUTO 0.99 K/mm3 (0.84-5.20); LYMPHOCYTES PERCENT AUTO 9 % (21-46); MONOCYTES ABSOLUTE AUTO 0.15 K/mm3 (0.16-1.47); MONOCYTES PERCENT AUTO 1 % (4-13); NEUTROPHILS ABSOLUTE AUTO 6.39 K/mm3 (1.96-9.15); NEUTROPHILS PERCENT AUTO 56 % (41-73)
[2025-04-04 04:57] VITALS: BP 162/86
--- NOTE | 2025-04-04 05:08 | NUR ---
SHIFT SUMMARY PT A&OX4, ON 2L O2 NC, AMB W/ ASSIST, VOIDING, AND PAIN MANAGED PER EMAR. PT HYPERTENSIVE UPON ADMIT, BUT ASYMPTOMATIC. THIS RN NOTIFIED PROVIDER, SEE PREVIOUS NOTE. NS CONT TO INFUSE AND IV ABX GIVEN PER ORDER. NO ACUTE CHANGES THIS SHIFT. CALL LIGHT WITHIN REACH.
[2025-04-04 07:36] VITALS: BP 143/64
[2025-04-04] MEDS ORDERED: NS 250 ML IV PRN (08:15)
[2025-04-04] MEDS ORDERED: Enoxaparin 30 MG/0.3 ML SYR SC SCH (09:00)
--- NOTE | 2025-04-04 13:19 | NUR ---
PATIENT HAD AN EPISODE OF FEELING LIKE APPLE GOT STUCK IN HER THROAT WHEN SHE WAS EATING, SHE HAS HX OF BARRETTS ESOPHAGUS. DISCUSSED WITH DR. PANTOJA, CHANGING DIET TO SOFT AND BITE SIZED, WILL HAVE SPEECH CONSULT TOMORROW.
[2025-04-04 15:30] VITALS: BP 152/86
--- NOTE | 2025-04-04 18:00 | NUR ---
PATIENT IS A&OX4, SHE IS ON 3L O2 BY NASAL CANNULA. SHE AMBULATES WITH SBA TO BATHROOM. SHE IS CONTINENT. SHE IS ON JAVA SECURITY ENGINEER, SATURATION >92%. BASELINE 2L AT NIGHT. SHE CALLS APPROPRIATELY, BED IS LOW AND CALL LIGHT IS IN REACH.
[2025-04-04 19:49] VITALS: BP 152/73
[2025-04-04] MEDS ORDERED: CefTRIAXone Sodium 1,000 MG in NS 100 ML IV SCH (21:00)
[2025-04-05 02:09] VITALS: BP 151/75
[2025-04-05 04:52] LABS: BASOPHILS ABSOLUTE AUTO 0.10 K/mm3 (0.00-0.23); BASOPHILS PERCENT AUTO 1 % (0-2); EOSINOPHILS ABSOLUTE AUTO 3.93 K/mm3 (0.00-0.68); EOSINOPHILS PERCENT AUTO 19 % (0-6); Hematocrit 34.8 % (33.0-51.0); Hemoglobin 11.8 g/dL (11.5-16.0); Mean Corpuscular HGB Conc 33.9 g/dL (31.5-36.5); Mean Corpuscular Volume 93 fL (80-100); NRBC ABSOLUTE 0.00 K/mm3 (0.00-0.02); NRBC Auto 0.0 /100 WBC (0.0-0.2); Platelet Count 294 K/mm3 (150-400); RDW Coefficient Variation 13.2 % (11.7-14.2); RDW Standard Deviation 45.4 fL (35.1-46.3)
[2025-04-05 04:55] LABS: IMMATURE GRAN ABSOLUTE AUTO 0.14 K/mm3 (0.00-0.10); IMMATURE GRAN PERCENT AUTO 1 % (0-1); LYMPHOCYTES ABSOLUTE AUTO 3.86 K/mm3 (0.84-5.20); LYMPHOCYTES PERCENT AUTO 18 % (21-46); MONOCYTES ABSOLUTE AUTO 1.14 K/mm3 (0.16-1.47); MONOCYTES PERCENT AUTO 5 % (4-13); NEUTROPHILS ABSOLUTE AUTO 11.89 K/mm3 (1.96-9.15); NEUTROPHILS PERCENT AUTO 56 % (41-73)
[2025-04-05 05:11] LABS: Anion Gap 7.0 mmol/L (3-11); Blood Urea Nitrogen 20.0 mg/dL (8-24); CO2, Blood 31.0 mmol/L (21-32); Calcium, Blood 9.5 mg/dL (8.5-10.1); Chloride, Blood 103.0 mmol/L (98-108); Creatinine, Blood 0.61 mg/dL (0.40-1.00); Glucose, Blood 114.0 mg/dL (70-99); Potassium, Blood 4.3 mmol/L (3.5-5.5); Sodium, Blood 137.0 mmol/L (136-145)
--- NOTE | 2025-04-05 06:26 | NUR ---
SHIFT SUMMARY PATIENT IS ALERT AND ORIENTED. PATIENT HAS HAD NO ACUTE EVENTS THIS SHIFT. PATIENT REMAINS ON 4L NC. PATIENT HAS HAD NO COMPLAINTS OF SOB, NAUSEA, VOMITTING, OR PAIN THIS SHIFT. ABX INFUSED ORDERED. BED IN LOCKED AND LOWEST POSITION. CALL LIGHT IN PLACE.
[2025-04-05 07:50] VITALS: BP 120/82
[2025-04-05] MEDS ORDERED: Azopt10 ML BOTHEYES (10:38)
[2025-04-05 15:15] VITALS: BP 133/76
--- NOTE | 2025-04-05 17:12 | NUR ---
SUMMARY- AAOX4. PT ON 3L NC CONTINUOUSLY THIS SHIFT. X1 ASSIST TO THE BATHROOM. PT DENIES ANY PAIN THIS SHIFT. NO ACUTE EVENTS THIS SHIFT.
[2025-04-05 19:49] VITALS: BP 104/75
[2025-04-05 21:28] LABS: Source, Urine Clean Catch
[2025-04-05 21:43] LABS: Bilirubin, Urine Neg (Neg); Glucose Qualitative, Urine Neg (Neg); Ketones, Urine Neg (Neg); Leukocyte Esterase, Urine Neg (Neg); Protein, Urine Neg (Neg); Specific Gravity, Urine 1.010 (1.003-1.022); Urobilinogen, Urine NORM (Normal)
[2025-04-05 21:48] LABS: Color, Urine Yellow (P-Yellow)
[2025-04-05 22:01] LABS: Red Blood Cells, Urine 0-2 /hpf (0-2); White Blood Cells, Urine 0-2 /hpf (0-5)
[2025-04-06 04:00] VITALS: BP 122/70
[2025-04-06 05:45] LABS: Hematocrit 35.3 % (33.0-51.0); Hemoglobin 11.8 g/dL (11.5-16.0); Mean Corpuscular HGB Conc 33.4 g/dL (31.5-36.5); Mean Corpuscular Volume 94 fL (80-100); NRBC ABSOLUTE 0.00 K/mm3 (0.00-0.02); NRBC Auto 0.0 /100 WBC (0.0-0.2); Platelet Count 251 K/mm3 (150-400); RDW Coefficient Variation 13.4 % (11.7-14.2); RDW Standard Deviation 46.4 fL (35.1-46.3)
[2025-04-06 06:13] LABS: Anion Gap 11.0 mmol/L (3-11); Blood Urea Nitrogen 17.0 mg/dL (8-24); CO2, Blood 27.0 mmol/L (21-32); Calcium, Blood 9.4 mg/dL (8.5-10.1); Chloride, Blood 98.0 mmol/L (98-108); Creatinine, Blood 0.6 mg/dL (0.40-1.00); Glucose, Blood 124.0 mg/dL (70-99); Potassium, Blood 4.1 mmol/L (3.5-5.5); Sodium, Blood 132.0 mmol/L (136-145)
--- NOTE | 2025-04-06 06:27 | NUR ---
SHIFT SUMMARY REMAINS ON 2L NC THIS EVENING. HAS HAD MULTIPLE EPISODES OF INCREASED DYSPNEA, ACCESSORY MUSCLE USE, AND TACHYPNEA WITH AMBULATING TO RESTROOM. REMAINS >91% SPO2 ON 2L CONTINUOUS PULSE OX MONITORING. VEWS SCORE OF 4 DISCUSSED WITH PROVIDER WHO RELAYS PLAN TO FURTHER INVESTIGATE. NO FURTHER ORDERS AT THIS TIME. REMAINS 1-PERSON SBA, A&OX3-4 WITH EPISODIC DISORIENTATION TO SITUATION. WBC HAS INCREASED FROM 21 TO 22 TODAY, AND LOW-GRADE FEVER OF 99.4 F WAS MEDICATED PER EMAR. PT DID SLEEP INTERMITTENTLY S/P ONE-TIME BENZODIAZEPINE DOSE PER EMAR FOR ANXIETY WITH INCREASED WORK OF BREATHING. DOES OCCASIONALLY BED EXIT WITHOUT ASSIST PRESENT. TOLERATING PO FLUIDS AND FOOD WELL, LARGER MEDS CUT IN HALF. PATENT IV IN RFA PLACED BY LOOM CONTROL CHAIN BUILDER THIS EVENING AFTER RAC INFILTRATE IV D/C'D. UA ORDER OBTAINED F0R PT NEWLY REPORTING DYSURIA AND FREQUENCY, AND WAS NEGATIVE APART FROM FEW BACTERIA AND 2+ BLOOD, NO CULTURE INDICATED.
[2025-04-06 07:11] VITALS: BP 130/84
[2025-04-06 07:35] LABS: BASOPHILS ABSOLUTE MAN 0.22 K/mm3 (0.00-0.23); BASOPHILS PERCENT MAN 1 % (0-2); EOSINOPHILS ABSOLUTE MAN 3.83 K/mm3 (0.00-0.68); EOSINOPHILS PERCENT MAN 17 % (0-6); LYMPHOCYTES ABSOLUTE MAN 3.15 K/mm3 (0.84-5.20); LYMPHOCYTES PERCENT MAN 14 % (21-46); MONOCYTES ABSOLUTE MAN 0.90 K/mm3 (0.16-1.47); MONOCYTES PERCENT MAN 4 % (4-13); NEUTROPHILS ABSOLUTE MAN 14.43 K/mm3 (1.96-9.15); SEG NEUTROPHILS PERCENT MAN 64 % (41-73)
[2025-04-06 15:00] LABS: Influenza A, PCR NEGATIVE (NEGATIVE); Influenza B, PCR NEGATIVE (NEGATIVE); Resp Syncytial Virus, PCR NEGATIVE (NEGATIVE); SARS-Cov-2 (COVID-19) PCR, MMC NEGATIVE (NEGATIVE)
[2025-04-06 15:20] VITALS: BP 131/98
--- NOTE | 2025-04-06 18:16 | NUR ---
END OF SHIFT NOTE PATIENT IND IN ROOM MOST OF TODAY. PATIENT ABLE TO USE CALL LIGHT AND MAKE NEEDS KNOWN. PATIENT CALM AND AGREEABLE WITH CARE. MODERATE COUGHING TODAY, DR IN TO LISTEN, VIRAL SWAB COMPLETED, NEGATIVE RESULTS. PATIENT STILL ON O2, AMB TO BATHROOM IND, HAT IN TOILET. NO FURTHER NEEDS OR CONCERNS AT THIS TIME.
[2025-04-06 19:52] VITALS: BP 126/74
[2025-04-07 02:47] VITALS: BP 148/70
--- NOTE | 2025-04-07 05:56 | NUR ---
SHIFT SUMMARY CONTINUES TREATMENTS WITH RT WHEN AWAKE FOR COPD EXACERBATION AND ACUTE ON CHRONIC RESPIRATORY FAILURE. REMAINS ON 2L NC CONTINUOUS, SATURATING >=94% ON RA ON CONTINUOUS PULSE OX. BASELINE IS 2L NC AT NOC. WBC HAS INCREASED TO 22, NEGATIVE RESPIRATORY PCR, AND NO FURTHER LOW-GRADE FEVERS. PT TAKING MEDS WHOLE (LARGER CUT IN 1/) WITH WATER, AND IS INDEPENDENT IN ROOM. REMAINS A&OX3-4, LESS INTERMITTENT SITUATIONAL CONFUSION THAN YESTERDAY. PENDING INTERVAL IMPROVEMENT IN RESPIRATORY CONDITION AND HIGH WBC COUNT.
[2025-04-07 07:31] VITALS: BP 141/62
[2025-04-07 15:27] VITALS: BP 138/70
--- NOTE | 2025-04-07 18:42 | NUR ---
PATIENT A/OX3-4, FORGETFUL AT TIMES. UP TO RESTROOM INDEPENDENTLY. CONTINENT OF BOWEL/BLADDER. VSS, ON 1LO2 TO MAINTAIN SATS >90%. SKIN INTACT. PATIENT CONTINUES TO COUGH AND IS DYSPNEIC WITH EXERTION. PT WORKED WITH PATIENT TODAY AND IS RECOMMENDING HOME WITH HOME HEALTH AND THE USE OF A WALKER. CONTINUES ON ROCEPHIN. NO NEW CONCERNS THIS SHIFT. PATIENT CONTINUES TO IMPROVE.
[2025-04-07 19:44] VITALS: BP 123/55
[2025-04-08] MEDS ORDERED: Albuterol HFA200 ACT/6.7 GM INH INH PRN (01:00)
[2025-04-08 03:00] VITALS: BP 130/68
[2025-04-08 04:47] LABS: BASOPHILS ABSOLUTE AUTO 0.10 K/mm3 (0.00-0.23); BASOPHILS PERCENT AUTO 1 % (0-2); EOSINOPHILS ABSOLUTE AUTO 6.25 K/mm3 (0.00-0.68); EOSINOPHILS PERCENT AUTO 43 % (0-6); Hematocrit 37.4 % (33.0-51.0); Hemoglobin 12.3 g/dL (11.5-16.0); IMMATURE GRAN ABSOLUTE AUTO 0.07 K/mm3 (0.00-0.10); IMMATURE GRAN PERCENT AUTO 1 % (0-1); LYMPHOCYTES ABSOLUTE AUTO 3.22 K/mm3 (0.84-5.20); LYMPHOCYTES PERCENT AUTO 22 % (21-46); MONOCYTES ABSOLUTE AUTO 0.78 K/mm3 (0.16-1.47); MONOCYTES PERCENT AUTO 5 % (4-13); Mean Corpuscular HGB Conc 32.9 g/dL (31.5-36.5); Mean Corpuscular Volume 97 fL (80-100); NEUTROPHILS ABSOLUTE AUTO 4.21 K/mm3 (1.96-9.15); NEUTROPHILS PERCENT AUTO 29 % (41-73); NRBC ABSOLUTE 0.00 K/mm3 (0.00-0.02); NRBC Auto 0.0 /100 WBC (0.0-0.2); Platelet Count 274 K/mm3 (150-400); RDW Coefficient Variation 13.6 % (11.7-14.2); RDW Standard Deviation 49.0 fL (35.1-46.3)
[2025-04-08 05:27] LABS: Alanine Aminotransfer (ALT/SGP 31.0 U/L (12-78); Albumin, Blood 3.1 g/dL (3.4-5.0); Albumin/Globulin Ratio 0.7 (0.8-1.8); Anion Gap 8.0 mmol/L (3-11); Aspartate Aminotrans (AST/SGOT 27.0 U/L (12-37); Bilirubin, Total 0.7 mg/dL (0.1-1.0); Blood Urea Nitrogen 25.0 mg/dL (8-24); CO2, Blood 31.0 mmol/L (21-32); Calcium, Blood 9.4 mg/dL (8.5-10.1); Chloride, Blood 101.0 mmol/L (98-108); Creatinine, Blood 0.7 mg/dL (0.40-1.00); Globulin, Blood 4.4 g/dL (2.2-4.0); Glucose, Blood 106.0 mg/dL (70-99); Potassium, Blood 4.6 mmol/L (3.5-5.5); Sodium, Blood 135.0 mmol/L (136-145); Total Protein, Blood 7.5 g/dL (6.4-8.2)
--- NOTE | 2025-04-08 05:56 | NUR ---
SHIFT SUMMARY PT A&Ox4 AND PLEASANT. IV ABX GIVEN PER EMAR. NO C/O PAIN. RT AT BEDSIDE DURING THE NIGHT FOR BREATHING TX. REMAINS ON 1L OF OXYGEN AND MAINTAINING SATS >94%. VSS. BED IN LOWEST POSITION AND CALL LIGHT IN REACH.
[2025-04-08 07:36] VITALS: BP 127/62
[2025-04-08 15:19] VITALS: BP 132/58
--- NOTE | 2025-04-08 17:33 | NUR ---
SHIFT SUMMARY: A&OX4 THROUGHOUT SHIFT. PLEASANT AND COOPERATIVE WITH CARE. PT UP IN ROOM MULTIPLE TIMES THROUGHOUT SHIFT INDEPENDENTLY. NO ACUTE EVENTS THIS SHIFT. DENIES CHEST PAIN AND/OR PRESSURE. O2 SATS MAINTAINED >90% THIS SHIFT ON ROOM AIR. SITTING UP IN BED AT THIS TIME. BED LOCKED AND IN THE LOWEST POSITION. CALL LT WITHIN REACH.
[2025-04-08 19:49] VITALS: BP 116/63
[2025-04-09 04:35] VITALS: BP 130/56
--- NOTE | 2025-04-09 04:49 | NUR ---
SHIFT SUMMARY: PATIENT REQUIRED HER PRN TRAZODONE FOR BEDTIME. NO ACUTE EVENTS. VITALS STABLE. PATIENT RESETED COMFORTABLY OVER NIGHT.
[2025-04-09 07:32] VITALS: BP 122/55
[2025-04-09 16:54] VITALS: BP 141/66
--- NOTE | 2025-04-09 17:10 | NUR ---
NO ACUTE CHANGES, STARTED ON IV STEROIDS TODAY, PER DR REYNOSO, PATIENT CLEARLY MAKES NEEDS KNOWN, INDEPEDANT IN ROOM, SOB WITH TOO MUCH ACTIVITY, PATIENT REPORTED NOT FEELING GOOD AND WANTING TO STAY ANOTHER NIGHT, POSSIBLITY OF DISCHARGE TOMORROW, WILL RELAY TO PM RN
[2025-04-09 19:42] VITALS: BP 127/63
[2025-04-10 03:15] VITALS: BP 132/61
--- NOTE | 2025-04-10 04:57 | NUR ---
SHIFT SUMMARY: PATIENT HAS SLEPT SOUNDLY THROUGHOUT MOST OF THIS NIGHT, OTHER THAN FOR MEDICATION ADMINISTRATION. CODE STATUS DISCUSSED WITH PATIENT, THIS NURSE HAS NOTED CONFUSION AMONGST WHAT PATIENTS WISHES ARE. PATIENT VERBALIZED NEEDING TO "THINK ON IT" MORE. WILL PASS INFORMATION ONTO DAYSHIFT NURSE. NO NEW OR ACUTE CHANGES DURING THIS SHIFT. PATIENT REMAINS ON 1L O2 SATING AT 92 VIA NC. PLAN TO CONTINUE BREATHING TREATMENT'S, AND AMB. PLAN TO D/C BACK TO PRIOR LIVING SITUATION.
[2025-04-10 07:30] VITALS: BP 134/71
[2025-04-10 16:30] VITALS: BP 156/70
--- NOTE | 2025-04-10 19:04 | NUR ---
ASSUMED CARE OF PT. UNEVENTFUL, PT IND IN ROOM WAS ABLE TO MAKE NEEDS KNOWN.
[2025-04-10 20:40] VITALS: BP 121/54
--- NOTE | 2025-04-11 04:35 | NUR ---
SHIFT SUMMARY: NO NEW OR ACUTE CHANGES THIS SHIFT. PATIENT REMAINS PLEASANT AND COOPERATIVE WITH CARE. MEDICATED FOR INSOMNIA DURING THIS SHIFT, SEE EMAR FOR DETAILS. CONT BIOX READING OF 92% O2, PULSE 83, ON 2L VIA NC. PATIENT LUNG SOUNDS HAVE NOTICABLY IMPROVED FROM PREVIOUS BOWLING BALL GRADER. LUNGS CLEAR IN UPPER LOBES, HOWEVER DIMINISHED IN LOWER. HEART WITHIN NORMAL PARAMETERS. PATIENT UP TO URINATE THROUGHOUT THIS SHIFT WITH LITTLE ASSISTANCE FROM NURSING PERSONEL. PLAN TO CONT IV ABX WITH POSSIBLE D/C TODAY 04/11/25. BED IN LOWEST POSITION, CALL LIGHT WITHIN REACH.
[2025-04-11 05:17] VITALS: BP 118/49
[2025-04-11 07:42] VITALS: BP 91/63
[2025-04-11 08:17] VITALS: BP 102/62
[2025-04-11] MEDS ORDERED: AMLO5 PO (13:47)
[2025-04-11] MEDS ORDERED: IPRAT-ALBUT 0.5-3 ML INH (13:48)
[2025-04-11] MEDS ORDERED: Prednisone10 MG (13:49)
== END 2025-04-11 15:10 | disposition home or self-care (01) | DRG 189 ==
LOC: ER 21:21 → MEDS 21:22
PROVIDERS: Emergency Medicine; Family Medicine; Internal Medicine; Student in an Organized Health Care Education/Training Program; ADMIT Student in an Organized Health Care Education/Training Program
DX: J96.21 Acute and chronic respiratory failure with hypoxia (principal); J44.1 Chronic obstructive pulmonary disease with (acute) exacerbation; R64 Cachexia; J44.0 Chronic obstructive pulmonary disease with (acute) lower respiratory infection; Z68.1 Body mass index [BMI] 19.9 or less, adult; E78.5 Hyperlipidemia, unspecified; G43.909 Migraine, unspecified, not intractable, without status migrainosus; K21.9 Gastro-esophageal reflux disease without esophagitis; I10 Essential (primary) hypertension; D72.829 Elevated white blood cell count, unspecified; J20.9 Acute bronchitis, unspecified; Z88.5 Allergy status to narcotic agent; Z88.8 Allergy status to other drugs, medicaments and biological substances; Z91.041 Radiographic dye allergy status; Z79.51 Long term (current) use of inhaled steroids; Z79.899 Other long term (current) drug therapy; Z87.19 Personal history of other diseases of the digestive system; Z90.49 Acquired absence of other specified parts of digestive tract; Z90.710 Acquired absence of both cervix and uterus; Z90.89 Acquired absence of other organs; Z87.39 Personal history of other diseases of the musculoskeletal system and connective tissue; Z98.1 Arthrodesis status; Z87.891 Personal history of nicotine dependence; Z99.81 Dependence on supplemental oxygen; Z86.69 Personal history of other diseases of the nervous system and sense organs; Z98.890 Other specified postprocedural states
CPT/HCPCS: 36415; 71045; 80048; 80053; 81001; 83605; 83880; 84145; 84484; 85025; 87040; 87449; 87637; 92610; 93005; 93010; 94640; 94664; 94760; 94762; 96365; 96366; 96367; 96372; 96375; 96376; 97110; 97161; 97166; 97530; 99285-25; A9270; G0378; J0456; J0696; J1650; J2405; J2919; J7040; J7050; J7512